=== PATIENT | male | born 1980 | race Caucasian/White ===

== ENCOUNTER 2022-02-09 09:45 | Emergency (ER) | payer SELFPAY ==
[~2022-02-09] VITALS: Ht 185.4 cm; Wt 82.0 kg
[2022-02-09 09:50] VITALS: BP 154/113
== END 2022-02-09 12:37 | disposition home or self-care (01) ==
LOC: ER 09:45
DX: S09.8XXA Other specified injuries of head, initial encounter (principal); R03.0 Elevated blood-pressure reading, without diagnosis of hypertension; Y00.XXXA Assault by blunt object, initial encounter; Y93.89 Activity, other specified; Y92.89 Other specified places as the place of occurrence of the external cause
CPT/HCPCS: 99284